=== PATIENT | male | born 1990 | race Caucasian/White ===

== ENCOUNTER 2018-07-25 06:34 | Observation (INO) | payer OTHER ==
[2018-07-25] MEDS ORDERED: BUPIVACAINE 0.25% 30 ML SDV ONE (06:46)
[2018-07-25] MEDS ORDERED: DEXAMETHASONE 10 MG/ML VIAL IVP ONE (07:06)
--- NOTE | 2018-07-25 07:06 | PDHPUP ---
History & Physical Update H&P update statement: This history and physical update is based on an assessment of the patient which was completed after admission or registration (within 24 hours), but prior to the surgery/procedure. H&P update: H&P reviewed & patient examined, no change in patient's condition since H&P completed
[2018-07-25] MEDS ORDERED: HYDROmorphONE/DILAUDID 2 MG/ML INJ IVP PRN (07:20)
[2018-07-25] MEDS ORDERED: ALBUTEROL 3 ML DEYVIAL IH PRN (07:20)
[2018-07-25] MEDS ORDERED: NALOXONE HCL 0.4 MG/ML INJ IVP PRN ×2 (07:20→08:35)
[2018-07-25] MEDS ORDERED: HYDROCODONE/APAP 5/325 TAB PO PRN (07:20)
[2018-07-25] MEDS ORDERED: oxyCODONE IR 5 MG TAB PO PRN (07:20)
[2018-07-25] MEDS ORDERED: PROMETHAZINE HCL 25 MG/ML INJ IVP PRN (07:20)
[2018-07-25] MEDS ORDERED: MIDAZOLAM 2 MG/2 ML VIAL IVP ONE (07:20)
[2018-07-25] MEDS ORDERED: ONDANSETRON 4 MG/2 ML VIAL IVP PRN ×2 (07:20→13:37)
[2018-07-25] MEDS ORDERED: DEXAMETHASONE 4 MG/ML VIAL IVP PRN (07:20)
--- NOTE | 2018-07-25 07:22 | PDANEPAE ---
ANE History of Present Illness Tonsillectomy ANE Past Medical History - Cardiovascular History Hx Hypertension: No Hx Arrhythmias: No Hx Chest Pain: No Hx Coronary Artery / Peripheral Vascular Disease: No Hx CHF / Valvular Disease: No Hx Palpitations: No - Pulmonary History Hx COPD: No Hx Asthma/Reactive Airway Disease: No Hx Recent Upper Respiratory Infection: No Hx Oxygen in Use at Home: No Hx Sleep Apnea: Yes Sleep Apnea Screening Result - Last Documented: Positive Pulmonary History Comment: SLEEP APNEA W/CPAP - Neurologic History Hx Cerebrovascular Accident: No Hx Seizures: No Hx Dementia: No - Endocrine History Hx Diabetes: No - Renal History Hx Renal Disorders: No - Liver History Hx Hepatic Disorders: No - Neurological & Psychiatric Hx Hx Neurological and Psychiatric Disorders: Yes Neurological / Psychiatric History Comment: SEES PSYCHIATRIST. HX - SUBSTANCE ABUSE - TAKING NALTREXONE - Cancer History Hx Cancer: No - Congenital Disorder History Hx Congenital Disorders: No - GI History Hx Gastrointestinal Disorders: No - Other Health History Other Health History: ECZEMA HANDS - Chronic Pain History Chronic Pain: Yes (LOW BACK PAIN DDD) - Surgical History Prior Surgeries: COSMO MASTECTOMY. HYSTERECTOMY ANE Review of Systems Review of Systems: - Exercise capacity METS (RN): 5 METS ANE Patient History - Allergies Allergies/Adverse Reactions: amoxicillin Allergy (Verified 06/26/18 10:43) Rash/Itching - Home Medications Home Medications: PARoxetine HCL [Paxil] 40 mg PO DAILY 03/10/18 [Last Taken Unknown] Deplin 15mg 15 mg PO DAILY 06/26/18 [Last Taken Unknown] Ibuprofen [Motrin (*)] 200 mg PO DAILY PRN 06/26/18 [Last Taken Unknown] Naltrexone HCl [Revia 50mg (RX)] 50 mg PO DAILY 06/26/18 [Last Taken Unknown] lamoTRIgine [LamICTAL 100 MG (*)] 150 mg PO DAILY 06/26/18 [Last Taken Unknown] - Smoking Hx Smoking Status: Former smoker - Family Anes Hx Family Hx Anesthesia Complications: NEG ANE Labs/Vital Signs - Vital Signs Height: 170.18 cm Weight: 102.058 kg ANE Physical Exam - Airway Neck exam: FROM Mallampati Score: Class 2 Mouth exam: normal dental/mouth exam - Pulmonary Pulmonary: clear to auscultation - Cardiovascular Cardiovascular: regular rate and rhythym - ASA Status ASA Status: II ANE Anesthesia Plan Anesthesia Plan: general endotracheal anesthesia
[2018-07-25] MEDS ORDERED: PROPOFOL 200 MG/20 ML VIAL ONE (07:44)
[2018-07-25] MEDS ORDERED: ROCURONIUM 50 MG/5 ML VIAL ONE (07:47)
[2018-07-25] MEDS ORDERED: fentaNYL 100 MCG/2 ML INJ ONE ×4 (07:47→11:31)
[2018-07-25] MEDS ORDERED: METOCLOPRAMIDE 10 MG/2 ML VIAL ONE (08:00)
[2018-07-25] MEDS ORDERED: RANITIDINE 50 MG/2 ML VIAL ONE (08:00)
[2018-07-25] MEDS ORDERED: ONDANSETRON 4 MG/2 ML VIAL ONE (08:00)
[2018-07-25] MEDS ORDERED: SUGAMMADEX SODIUM 200 MG/2 ML VIAL IVP ONE (08:14)
--- NOTE | 2018-07-25 08:29 | POSTOPPROG ---
Post Op Note Date of Operation: 07/25/18 Surgeon: Panda Nation Pamphlet Distributor: cl Anesthesiologist: Manfred Anesthesia: GET(General Endotracheal) Pre-op Diagnosis: chronic tonsillitis Post-op Diagnosis: same Procedure: tonsillectomy Findings: none Inf/Abcess present in the surg proc area at time of surgery?: No Depth: Deep Incisional (Fascial) EBL: 50-100 Total fluids administered: 900 Complications: none Specimen(s): tonsils pt stable to pacu
--- NOTE | 2018-07-25 08:37 | POSTANESTH ---
Post Anesthetic Evaluation Cardiovascular Status: Normal, Stable Respiratory Status: Normal, Stable Level of Consciousness/Mental Status: Can Participate in Eval, Alert and Oriented Pain Control: Adequate, Prn Tx Ordered Nausea/Vomiting Control: Adequate, Prn Tx Ordered Complications Possibly Related to Anesthesia: None Noted
--- NOTE | 2018-07-25 08:59 | GOP ---
DATE OF OPERATION: 07/25/2018 SURGEON: Rupesh Nation MD ANESTHESIA: General endotracheal. PREOPERATIVE DIAGNOSIS: Chronic tonsillitis. POSTOPERATIVE DIAGNOSIS: Chronic tonsillitis. PROCEDURE PERFORMED: Tonsillectomy. FINDINGS: Tonsillar hypertrophy. ESTIMATED BLOOD LOSS: 75 mL. DESCRIPTION OF PROCEDURE: Patient was placed on the operating table in supine position. After induc tion of adequate general endotracheal anesthesia, sterile draping was performed. Sterile eye pads an d head drape were placed. A shoulder roll was placed to the patient's shoulders to extend the neck. The Abram-Jose Manuel mouth gag was inserted over the previously placed endotracheal tube with care given to maintain the tube's correct depth. The Abram-Jose Manuel mouth gag was then opened, revealing enlarged tonsils. The right tonsil was grasped with an Allis clamp and retracted medially. Circumferential d issection of the right tonsil was performed using a needle-tip Bovie electrocautery. Hemostasis was obtained throughout the right tonsillar fossa by use of the bipolar and Bovie electrocautery. The left tonsil was grasped and excised in a manner identical to that of the right. Hemostasis was t hen obtained throughout the left tonsillar fossa by using the bipolar and Bovie electrocautery. An a dditional larger bleeder was suture ligated with two 2-0 chromic sutures placed in a [id number] fashion. At this point, the Abram-Jose Manuel mouth gag was let down for approximately 1 minute and then r eopened. No further bleeding was noted. The right and left tonsillar fossa were then infiltrated wi th 0.25% Marcaine solution. A total of 15 mL were injected with care given to the avoidance of intra vascular injection. At this point, the Abram-Jose Manuel mouth gag was again let down for approximately 1 minute and then reopened. No bleeding was noted from the injection sites. An orogastric tube was pa ssed. The patient's gastric contents were aspirated. He was then awakened, transferred to the posta nesthesia recovery area in stable condition. FLUID REPLACEMENT: 900 mL. COMPLICATIONS: None. /[id number]/MODL
[2018-07-25] MEDS: fentaNYL 100 MCG/2 ML INJ IVP PRN ×3 (09:11→11:32)
[2018-07-25] MEDS: HYDROCOD/APAP 7.5/325 IN 15ML UDCUP PO PRN ×4 (09:50→21:52)
[2018-07-25] MEDS ORDERED: ACETAMINOPHEN 160 MG/5 ML UDCUP PO PRN (13:37)
[2018-07-25] MEDS: NS 1,000 ML IV SCH (14:00)
--- NOTE | 2018-07-25 17:46 | SOAPPROG ---
SOAP Progress Note Assessment/Plan: Assessment: S/p tonsillectomy. Plan: If stable pt will d/c tomorrow. 07/25/18 17:43 Subjective: Pt complains of some pain with eating. Objective: Vital Signs Temp Pulse Resp BP Pulse Ox 36.6 C 64 14 108/67 96 07/25/18 17:14 07/25/18 17:14 07/25/18 17:14 07/25/18 17:14 07/25/18 17:14 07/24/18 07/25/18 07/26/18 05:59 05:59 05:59 Intake Total 900 Output Total 75 Balance 825 Afebrile, VSS, no bleeding in throat or clot present. Minimal PO intake - Pending Discharge Pending Discharge Within 24 Hours: Yes Pending Discharge Date: 07/26/18 Pending Discharge Time: 11:00 ICD10 Worksheet Patient Problems: Problems Problem Status Onset Tonsil symptom Acute - ICD10 Problem Qualifiers (1) Tonsil symptom
[2018-07-26] MEDS: HYDROCOD/APAP 7.5/325 IN 15ML UDCUP PO PRN ×3 (01:56→11:12)
[2018-07-26] MEDS: NS 1,000 ML IV SCH (04:25)
--- NOTE | 2018-07-26 09:36 | PDDCSUM ---
Discharge Summary Discharge Summary: Pt POD #1 s/p tonsillectomy. Doing well. Pain controlled. Okay for d/c, follow up in clinic in 2 weeks as planned.
--- NOTE | 2018-07-26 09:49 | ASDISCHSUM ---
Discharge Information Plan Status:Home with No Needs Medically Cleared to Leave:07/25/2018 Discharge Date:07/25/2018 CM D/C Disposition:Home, Routine, Self-Care ADT D/C Disposition:Home, Routine, Self-Care Projected Discharge Date:07/25/2018 Transportation at D/C: Discharge Delay Reason: Follow-Up Date:07/25/2018 Discharge Slot: Final Diagnosis: Placement Information Patient Contact Information Contact Name:HEATH Relationship:Dang Address: Work Phone: City:[place] Alternate Phone: State/[employer] Code:[place] Email: Financial Information Financial Class:HMO and PPO Plans Primary Plan Desc:[employer] Primary Plan Number:[id number] Secondary Plan Desc: Secondary Plan Number: Assessment Information LACE LACE Length of stay for Answers: 1 day current admission Acuity / Level of Answers: No Care: Did the patient have an inpatient admission? Comorbidities - select Answers: Opioid dependence all that apply / Chronic pain # of Emergency department Answers: 1-2 visits in the last 6 months Social determinants Answers: History of substance abuse (ETOH, street drugs, prescription drugs, etc.) Score: 9 Date Signed: 07/26/2018 09:48 AM Electronically Signed By:Shannon Tobias RN Intervention Information
--- NOTE | 2018-07-26 10:51 | PDHOMEO2F ---
Home Oxygen Face to Face Home Orders: I certify that a physician or a nurse practitioner or physician's medical support assistant has had a [id number] encounter with this patient on the date of this order due to the diagnosis listed, which relates to the primary reason the patient requires home oxygen. Alternative treatments have been tried, or considered, and deemed ineffective. It is anticipated that supplemental oxygen will result in improvement with treatment. Home oxygen qualifying diagnosis: Desaturation to 83% on RA at rest Home oxygen secondary diagnosis: Sleep apnea SpO2 on room air (%): 83% Frequency of home oxygen needed: during sleep (or resting in bed) Home oxygen liters per minute: 2L Home oxygen delivery device: via CPAP Concentrator: Yes E-tanks for mobility and back up: Yes If ordering portable O2, is the patient mobile in the home?: Yes I certify that, based on these findings, the home oxygen is medically necessary for this patient for the following length of time. Length of time home oxygen needed: 1 month (2 weeks)
[2018-07-26 11:08] VITALS: BP 111/66
--- NOTE | 2018-07-26 11:24 | PDHOMEO2F ---
Home Oxygen Face to Face Home Orders: I certify that a physician or a nurse practitioner or physician's assistant laboratory director has had a qjgq-ap-aehm encounter with this patient on the date of this order due to the diagnosis listed, which relates to the primary reason the patient requires home oxygen. Alternative treatments have been tried, or considered, and deemed ineffective. It is anticipated that supplemental oxygen will result in improvement with treatment. Home oxygen qualifying diagnosis: oxygen 83% on room air with sleeping and at rest. hx of sleep apnea SpO2 on room air (%): 83 Frequency of home oxygen needed: continuous, during sleep Home oxygen liters per minute: 1-2 Home oxygen delivery device: nasal cannula Concentrator: Yes E-tanks for mobility and back up: Yes If ordering portable O2, is the patient mobile in the home?: Yes I certify that, based on these findings, the home oxygen is medically necessary for this patient for the following length of time. Length of time home oxygen needed: 1 month
== END 2018-07-26 14:44 | disposition home or self-care (01) ==
LOC: F3E 06:34
PROVIDERS: ADMIT Otolaryngology; ATTEND Otolaryngology
PROC: 0CTPXZZ Resection of Tonsils, External Approach (ICD-10-PCS; principal; 2018-07-25 07:45)
DX: J35.01 Chronic tonsillitis (principal)
CPT/HCPCS: 42826; G0378; J1100; J2250; J2270; J2405; J2704; J2765; J2780; J3010

== ENCOUNTER 2018-09-15 22:27 | Emergency (ER) | payer OTHER | END 2018-09-16 01:49 | disposition home or self-care (01) ==

== ENCOUNTER → 2018-09-24 | Outpatient (CLI) | payer OTHER | LOC: FCPNEURO 21:30 | PROVIDERS: ATTEND Student in an Organized Health Care Education/Training Program | DX: G47.39 Other sleep apnea (principal); G47.33 Obstructive sleep apnea (adult) (pediatric) ==

== ENCOUNTER 2018-10-22 01:00 | Emergency (ER) | payer OTHER ==
[2018-10-22 01:15] LABS: PLATELET COUNT 351 10^3/uL (150-400)
[2018-10-22] MEDS ORDERED: NS 1,000 ML IV ONE (01:18)
[2018-10-22] MEDS ORDERED: ONDANSETRON 4 MG/2 ML VIAL ONE (02:10)
[2018-10-22] MEDS ORDERED: ONDANSETRON 4 MG/2 ML VIAL IVP ONE (02:34)
--- NOTE | 2018-10-22 02:38 | EDPHY ---
H & P Stated Complaint: POLYPHARM OD, M1, SI - Personal History Current Tetanus Diphtheria and Acellular Pertussis (TDAP): Yes - Medical/Surgical History Hx Asthma: No Hx Chronic Respiratory Disease: No Hx Diabetes: No Hx Cardiac Disease: No Hx Renal Disease: No Hx Cirrhosis: No Hx Alcoholism: No Hx HIV/AIDS: No Hx Splenectomy or Spleen Trauma: No Other PMH: bilat mastectomy, hysterectomy, FRAN, TONSILLECTOMY, dEPRESSION - Social History Smoking Status: Former smoker Time Seen by Provider: 10/22/18 02:08 HPI/ROS: Chief Complaint: Overdose HPI: 28-year-old male took an overdose of 10 with him, 30 Benadryl and cough medicine attempted suicide. Has a history of bipolar disorder and suicide attempts in the past. Denies any other ingestions. Patient has increasing depression. Patient is somnolent and unable to provide any further history. ROS: 10 systems were reviewed and were negative except those elements noted in the HPI. PMH: Depression Social History: No smoking Family History: non-contributory Physical Exam: Gen: Awake, somnolent, arousable, No Distress HEENT: Nose: no rhinorrhea Eyes: PERRLA, EOMI Mouth: Moist mucosa Neck: Supple, no JVD Chest: nontender, lungs clear to auscultation Heart: S1, S2 normal, no murmur Abd: Soft, non-tender, no guarding Back: no CVA tenderness, no midline tenderness Ext: no edema, non-tender Skin: no rash Neuro: CN II-XII intact, Sensation grossly intact, Strength 5/5 in bilateral upper and lower extremities (Lars Delgado) Constitutional: Initial Vital Signs Temperature (C) 36.8 C 10/22/18 01:08 Heart Rate 89 10/22/18 01:08 Respiratory Rate 18 10/22/18 01:08 Blood Pressure 132/89 H 10/22/18 01:08 O2 Sat (%) 97 10/22/18 01:08 O2 Delivery Mode Room Air Allergies/Adverse Reactions: amoxicillin Allergy (Verified 10/22/18 01:08) Rash/Itching Home Medications: Medication Instructions Recorded PARoxetine HCL [Paxil] 40 mg PO DAILY 03/10/18 lamoTRIgine [LamICTAL 100 MG (*)] 150 mg PO DAILY 06/26/18 Medical Decision Making ED Course/Re-evaluation: Nursing staff discussed with poison control. They are recommending repeat lithium level at 5:00 a.m. To make sure this is not trending up. Otherwise supportive treatment for his other overdose. Awaiting repeat lithium level. Patient signed out to Dr. Lopez pending completion medical clearance and mental health evaluation. (Lars Delgado) Other Provider: Patient has been evaluated by Mental Health as of 10:30am. They feel the patient is not at high risk of self-harm and recommend discharge home with outpatient follow-up. (Heber Lopez) - Data Points Laboratory Results: Laboratory Results 10/22/18 01:00 10/22/18 01:00 10/22/18 10/22/18 10/22/18 06:50 01:20 01:00 WBC RBC Hgb Hct MCV MCH MCHC RDW Plt Count MPV Neut % (Auto) Lymph % (Auto) Treasure % (Auto) Eos % (Auto) Baso % (Auto) Nucleat RBC Rel Count Absolute Neuts (auto) Absolute Lymphs (auto) Absolute Monos (auto) Absolute Eos (auto) Absolute Basos (auto) Absolute Nucleated RBC Immature Gran % Immature Gran # Sodium 142 mEq/L mEq/L (135-145) Potassium 4.0 mEq/L mEq/L (3.5-5.2) Chloride 105 mEq/L mEq/L (97-110) Carbon Dioxide 25 mEq/l mEq/l (22-31) Anion Gap 12 mEq/L mEq/L (6-14) BUN 16 mg/dL mg/dL (7-23) Creatinine 0.9 mg/dL mg/dL (0.7-1.3) Estimated GFR > 60 Glucose 99 mg/dL mg/dL (70-100) Calcium 9.4 mg/dL mg/dL (8.5-10.4) Salicylates < 1.0 mg/dL L mg/dL (2.0-20.0) Urine Opiates Screen NEGATIVE (NEGATIVE) Acetaminophen < 10 mcg/mL L mcg/mL (10-30) Urine Barbiturates NEGATIVE (NEGATIVE) Ur Phencyclidine Scrn NEGATIVE (NEGATIVE) Ur Amphetamine Screen NEGATIVE (NEGATIVE) U Benzodiazepines Scrn NEGATIVE (NEGATIVE) Standish 0.6 mEq/L mEq/L 0.2 mEq/L L mEq/L (0.6-1.2) (0.6-1.2) Urine Cocaine Screen NEGATIVE (NEGATIVE) U Marijuana (THC) Screen NON-NEGATIVE H (NEGATIVE) Ethyl Alcohol 12 mg/dL H mg/dL (0-10) 10/22/18 01:00 WBC 6.51 10^3/uL 10^3/uL (3.80-9.50) RBC 4.77 10^6/uL 10^6/uL (4.40-6.38) Hgb 14.2 g/dL g/dL (13.7-17.5) Hct 43.1 % % (40.0-51.0) MCV 90.4 fL fL (81.5-99.8) MCH 29.8 pg pg (27.9-34.1) MCHC 32.9 g/dL g/dL (32.4-36.7) RDW 12.4 % % (11.5-15.2) Plt Count 351 10^3/uL 10^3/uL (150-400) MPV 9.5 fL fL (8.7-11.7) Neut % (Auto) 47.1 % % (39.3-74.2) Lymph % (Auto) 43.0 % % (15.0-45.0) Treasure % (Auto) 7.8 % % (4.5-13.0) Eos % (Auto) 1.1 % % (0.6-7.6) Baso % (Auto) 0.8 % % (0.3-1.7) Nucleat RBC Rel Count 0.0 % % (0.0-0.2) Absolute Neuts (auto) 3.07 10^3/uL 10^3/uL (1.70-6.50) Absolute Lymphs (auto) 2.80 10^3/uL 10^3/uL (1.00-3.00) Absolute Monos (auto) 0.51 10^3/uL 10^3/uL (0.30-0.80) Absolute Eos (auto) 0.07 10^3/uL 10^3/uL (0.03-0.40) Absolute Basos (auto) 0.05 10^3/uL 10^3/uL (0.02-0.10) Absolute Nucleated RBC 0.00 10^3/uL 10^3/uL (0-0.01) Immature Gran % 0.2 % % (0.0-1.1) Immature Gran # 0.01 10^3/uL 10^3/uL (0.00-0.10) Sodium Potassium Chloride Carbon Dioxide Anion Gap BUN Creatinine Estimated GFR Glucose Calcium Salicylates Urine Opiates Screen Acetaminophen Urine Barbiturates Ur Phencyclidine Scrn Ur Amphetamine Screen U Benzodiazepines Scrn Standish Urine Cocaine Screen U Marijuana (THC) Screen Ethyl Alcohol Medications Given: Discontinued Medications Sodium Chloride (Ns) 1,000 mls @ 0 mls/hr IV EDNOW ONE; Wide Open PRN Reason: Protocol Stop: 10/22/18 01:19 Last Admin: 10/22/18 01:20 Dose: 1,000 mls Ondansetron HCl (Zofran) 4 mg IVP EDNOW ONE Stop: 10/22/18 02:35 Last Admin: 10/22/18 02:35 Dose: 4 mg Departure - Departure Disposition: Home, Routine, Self-Care Clinical Impression: Overdose Condition: Good Instructions: Adult Overdose (ED) Additional Instructions: Follow-up with your mental health provider as directed. Return to the ED for thoughts of self-harm, racing thoughts or other concerns. Referrals: [facility] [Other] - As per Instructions
[2018-10-22 10:38] VITALS: BP 152/90
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
--- NOTE | 2018-10-22 13:59 | ASMTTCLDSP ---
TLC Discharge Disposition Disposition: Answers: Discharge If Answers: Yes DISCHARGED: Patient/family given suicide hotline info & SAMHSA brochure? Disposition Notes: Notes: Pt stated commitment or ability to keep self safe, denied thoughts of self harm or harm to others. Pt expressed a desire to f/u with his therapist at [facility], Natasha Jennifer at his scheduled appointment at 1:00pm on 10/23/18. Pt was given local hotline information and SAMHSA brochure After an Attempt and encouraged to follow up with his [facility] therapist. Discharge Concerns/Recommendations: Notes: In consultation with [facility] ED physician, Heber Lopez MD, Dr. Lopez concurred that pt does not appear to meet 27-65 criteria requiring psychiatric hospitalization as pt does not appear to be an imminent risk of harm to self/others/gravely disabled due to a mental illness condition. Dr. Lopez provided verbal order read back vacating M1 hold at 10:35 hrs. Was patient given the Answers: Not applicable Inpatient Behavioral Health Prohibited Belongings List while in the ED? Psychiatrist vacating M1 Heber Lopez MD Hold: Date and time M1 hold 10/22/2018 10:35 AM vacated (time format is hh:mm): Type of Hold: Answers: M1/72-hour Hold Hold initiated by: Answers: Police Date Signed: 10/22/2018 01:58 PM Electronically Signed By:Erna Damon
== END 2018-10-22 10:47 | disposition home or self-care (01) ==
LOC: EDBD → EDUNIT#
DX: T50.902A Poisoning by unspecified drugs, medicaments and biological substances, intentional self-harm, initial encounter (principal); F32.9 Major depressive disorder, single episode, unspecified; E86.9 Volume depletion, unspecified; Z90.710 Acquired absence of both cervix and uterus; Z87.891 Personal history of nicotine dependence; Z90.13 Acquired absence of bilateral breasts and nipples
CPT/HCPCS: 80305; 96374; G0480; J2405

== ENCOUNTER → 2018-12-22 | Outpatient (CLI) | payer OTHER | LOC: FCPNEURO 21:45 ==